=== PATIENT | female | born 1975 | race Caucasian/White ===

== ENCOUNTER 2020-12-11 17:02 | Emergency (ER) | payer MEDICAID, OTHER ==
[~2020-12-11] VITALS: Ht 165.1 cm; Wt 108.9 kg
--- NOTE | 2020-12-11 17:17 | NUR ---
BIB SISTER C/O ABDOMINAL PAIN THAT STARTED 2PM. AOX4, NO SOB NOTED. PATIENT RESTING IN BED AND MADE COMFORTABLE. WILL CONTINUE TO MONITOR
[2020-12-11] MEDS ORDERED: ONDANSETRON HCL/PF 4 MG/2 ML VIAL IVP ONE (17:30)
[2020-12-11] MEDS ORDERED: IV NS 0.9% 1,000 ML BAG IV ONE (17:30)
[2020-12-11] MEDS ORDERED: MORPHINE SULFATE INJ 2 MG/ML DISP.SYRIN IV ONE (17:30)
--- NOTE | 2020-12-11 17:44 | NUR ---
BLOOD DRAWN AT THIS TIME AND SEND TO LAB
[2020-12-11 17:56] LABS: BASOPHILS % (AUTO) 0.2 % (0.0-2.0); EOSINOPHILS % (AUTO) 1.2 % (0.0-6.0); HEMATOCRIT 42 % (33-45); HEMOGLOBIN 14.1 g/dL (11.5-14.8); LYMPHOCYTES # (AUTO) 1.4 K/uL (0.8-4.8); LYMPHOCYTES % (AUTO) 24.9 % (20.0-44.0); MEAN CORPUSCULAR HGB CONC 33 g/dl (31.0-36.0); MEAN CORPUSCULAR VOLUME 90 fL (82-100); MONOCYTES # (AUTO) 0.4 K/uL (0.1-1.30); MONOCYTES % (AUTO) 6.8 % (2.0-12.0); NEUTROPHILS # (AUTO) 3.8 K/uL (1.8-8.9); NEUTROPHILS % (AUTO) 66.9 % (43.0-81.0); PLATELET COUNT (AUTO) 231 K/uL (150-450); RED BLOOD CELL COUNT(AUTO) 4.68 MIL/uL (4.0-5.2); WHITE BLOOD COUNT (AUTO) 5.8 K/uL (4.3-11.0)
[2020-12-11] MEDS ORDERED: MORPHINE SULFATE INJ 4 MG/ML DISP.SYRIN ONE (18:00)
[2020-12-11] MEDS ORDERED: ONDANSETRON HCL/PF 4 MG/2 ML VIAL ONE (18:00)
[2020-12-11 18:03] LABS: CALCIUM, SERUM 9.2 mg/dL (8.5-10.1); CREATININE 0.7 mg/dL (0.6-1.3); POTASSIUM 3.9 mmol/L (3.5-5.1)
[2020-12-11 18:09] LABS: ALBUMIN 3.8 g/dL (3.4-5.0); BILIRUBIN,DIRECT 0.6 mg/dL (0.0-0.2); BILIRUBIN,TOTAL 1.3 mg/dL (0.2-1.0); TOTAL PROTEIN, SERUM 7.7 g/dL (6.4-8.2)
--- NOTE | 2020-12-11 18:12 | NUR ---
PATIENT C/O ACHING PAIN OF 10/10. PT NOTED MOANING AND GRIMACING. VIRALS SIGNS BP 132/68, HR 82, RR 20, T 98.2, SPO2 94%. PER PATIENT REQUEST MORPHINE 4MG IV ONCE FOR PAIN AND ZOFRAN 4MG IV ONCE FOR NAUSEA ADMINISTERED PER MD'S ORDER AT THIS TIME. WILL CONTINUE TO MONITOR
[2020-12-11] MEDS ORDERED: PIPERACILLIN /TAZOBACTAM 3.375 G in IV D5W 50 ML IV ONE (18:30)
--- NOTE | 2020-12-11 18:33 | NUR ---
COVID SWAB COLLECTED AND SEND TO LAB
--- NOTE | 2020-12-11 18:50 | NUR ---
URINE COLLECTED AND SEND TO LAB.
[2020-12-11 19:04] LABS: BILIRUBIN,URINE NEGATIVE (NEGATIVE); COLOR,URINE YELLOW (YELLOW); LEUKOCYTE ESTERASE ,URINE NEGATIVE (NEGATIVE); NITRITE, URINE NEGATIVE (NEGATIVE); PH,URINE 6.5 (5.0-8.0); PROTEIN,URINE NEGATIVE (NEGATIVE); UGLUCOSE NEGATIVE (NEGATIVE)
[2020-12-11] MEDS ORDERED: PIPERACILLIN /TAZOBACTAM 3.375 G VIAL IV ONE (19:08)
[2020-12-11 19:33] LABS: BACTERIA,URINE RARE /HPF (None Seen); URINE AMORPHOUS URATE Many /HPF (None Seen); WBC,URINE 0-2 /HPF (0-3)
--- NOTE | 2020-12-11 21:58 | NUR ---
PT ACCEPTED TO [place] [id number] CALL BACK [facility] [phone] [facility] [id number] AUTH NUMBER
--- NOTE | 2020-12-11 22:11 | NUR ---
[facility] CALLED FOR TRANSPORT. [phone]
[2020-12-11 22:39] VITALS: BP 118/70
--- NOTE | 2020-12-11 22:50 | NUR ---
report given to Devi REYES at [facility] for [place]. and also to [facility] team for [place]. and transferring responsiblities.
== END 2020-12-11 23:13 | disposition short-term general hospital (02) ==
LOC: ER 17:14
DX: K80.42 Calculus of bile duct with acute cholecystitis without obstruction (principal); M47.896 Other spondylosis, lumbar region; R74.8 Abnormal levels of other serum enzymes; Z20.822 Contact with and (suspected) exposure to COVID-19
CPT/HCPCS: 36415; 74176; 80048; 80076; 81001; 83605; 83690; 84145; 85025; 87040 ×2; 87426; 96361; 96365; 96375; 99285; C9803; J2270; J2405; J2543; J7030; J7060